=== PATIENT | male | born 1990 | race Native Hawaiian/Other Pacific Islander ===

== ENCOUNTER 2022-05-04 11:14 | Emergency (ER) | payer BC ==
[~2022-05-04] VITALS: Ht 180.3 cm; Wt 99.8 kg
[2022-05-04 11:14] VITALS: TEMP 97.3
[2022-05-04 11:58] LABS: PLATELET COUNT 258 K/uL (142-355)
[2022-05-04 12:12] LABS: POTASSIUM 3.7 mmol/L (3.6-5.2)
[2022-05-04 12:33] LABS: PARTIAL THROMBOPLASTIN TIME 24.2 SECONDS (24.5-33.6)
[2022-05-04 13:30] VITALS: BP 132/87
== END 2022-05-04 13:30 | disposition home or self-care (01) ==
LOC: ED 11:50
PROVIDERS: Emergency Medicine
DX: R42 Dizziness and giddiness (principal); R07.89 Other chest pain
CPT/HCPCS: 80053; 84484; 85027; 85379; 85610; 85730; 93005; 99283